=== PATIENT | male | born 1965 | race Caucasian/White ===

== ENCOUNTER 2021-02-22 10:04 | Emergency (ER) | payer OTHER ==
[~2021-02-22] VITALS: Ht 182.9 cm; Wt 90.7 kg
[2021-02-22] MEDS ORDERED: GLUMETZA500 MG (10:32)
[2021-02-22] MEDS ORDERED: PERCOCET 5-3251 EACH PO (13:17)
[2021-02-22] MEDS ORDERED: CELECOXIB200 MG PO (13:17)
== END 2021-02-22 13:44 ==
LOC: ER 10:04
DX: S22.32XA Fracture of one rib, left side, initial encounter for closed fracture (principal); V00.131A Fall from skateboard, initial encounter; Y92.89 Other specified places as the place of occurrence of the external cause